=== PATIENT | female | born 1980 | race Caucasian/White ===

== ENCOUNTER 2024-12-03 20:36 | Emergency (ER) | payer OTHER ==
[~2024-12-03] VITALS: Ht 165.1 cm; Wt 103.4 kg
[2024-12-03] MEDS ORDERED: HYDR50TA62 (21:22)
[2024-12-03] MEDS ORDERED: CLON0.1T14 (21:22)
[2024-12-03] MEDS ORDERED: MELA5TAB (21:22)
[2024-12-03] MEDS ORDERED: SERT25TA (21:22)
[2024-12-03] MEDS ORDERED: ONDA4TAB5 (21:22)
[2024-12-03] MEDS ORDERED: VITA-85A (21:22)
[2024-12-03] MEDS ORDERED: GABA-534 (21:22)
[2024-12-03 23:38] LABS: BASOPHILS % (AUTO) 0.5 % (0.0-2.0); DIFFERENTIAL COMMENT 0; EOSINOPHILS # (AUTO) 0.2 K/uL (0.0-0.7); EOSINOPHILS % (AUTO) 2.8 % (0.0-7.0); HEMOGLOBIN 10.2 g/dL (10.9-14.3); LYMPHOCYTES # (AUTO) 2.4 K/uL (0.8-4.8); LYMPHOCYTES % (AUTO) 32.4 % (20.5-51.5); MEAN CORPUSCULAR HEMOGLOBIN 27.2 uug (24.7-32.8); MEAN CORPUSCULAR HGB CONC 32 g/dL (32.3-35.6); MONOCYTES # (AUTO) 0.6 K/uL (0.1-1.30); MONOCYTES % (AUTO) 8.7 % (0.0-11.0); NEUTROPHILS # (AUTO) 4.1 K/uL (1.8-8.9); NEUTROPHILS % (AUTO) 55.6 % (38.5-71.5); PLATELET COUNT (AUTO) 323 K/uL (179-408); RED BLOOD CELL COUNT(AUTO) 3.77 MIL/uL (3.63-4.92); RED CELL DISTRIBUTION WIDTH 16.2 % (12.3-17.7); WHITE BLOOD COUNT (AUTO) 7.3 K/uL (3.8-11.8)
[2024-12-03] MEDS ORDERED: ONDANSETRON 4 MG/2 ML VIAL ONE (23:41)
[2024-12-03] MEDS ORDERED: KETOROLAC TROMETHAMINE 30 MG INJ ONE (23:41)
[2024-12-03 23:43] LABS: CREATININE 0.8 mg/dL (0.6-1.3); POTASSIUM 4.1 mmol/L (3.5-5.1)
[2024-12-03 23:49] LABS: ALBUMIN 3.2 g/dL (3.4-5.0); BILIRUBIN,TOTAL 0.2 mg/dL (0.2-1.0); TOTAL PROTEIN, SERUM 6.9 g/dL (6.4-8.2)
[2024-12-04] MEDS: KETOROLAC TROMETHAMINE 30 MG INJ IVP ONE (00:01)
[2024-12-04] MEDS: ONDANSETRON 4 MG/2 ML VIAL IV ONE (00:05)
[2024-12-04 00:44] VITALS: BP 110/75; TEMP 98.6; O2SAT 99
== END 2024-12-04 00:45 | disposition left against medical advice (07) ==
LOC: ER 20:46
DX: M54.42 Lumbago with sciatica, left side (principal); F31.9 Bipolar disorder, unspecified; Z88.0 Allergy status to penicillin; Z88.2 Allergy status to sulfonamides; Z88.5 Allergy status to narcotic agent; Z90.710 Acquired absence of both cervix and uterus
CPT/HCPCS: 36415; 83690; 85025; A4606; A4663; J1885; J2405